=== PATIENT | male | born 1970 | race Caucasian/White ===

== ENCOUNTER 2025-02-22 09:59 | Observation (INO) | payer BC ==
[~2025-02-22] VITALS: Ht 180.3 cm; Wt 105.2 kg
[~2025-02-22 09:59] MED LIST: /AUGM875TA; ATRO0.063; MUCINEX; SM I100T OR; XOPE1.252
[2025-02-22] MEDS: NS (Normal Saline) 0.9% 1,000 ML IV ONE ×2 (10:53→11:50)
[2025-02-22] MEDS: HYDROMORPHONE HCL 0.5 MG/0.5 ML SYRINGE IV PRN (10:53)
[2025-02-22] MEDS ORDERED: ISOVUE-370 76% 100 ML VIAL As Ordered ONE (10:56)
[2025-02-22 11:08] LABS: BASO # 0.0 10^3/uL (0.0-0.2); BASO % 0.2 % (0.0-1.0); EOS # 0.0 10^3/uL (0.0-0.5); EOS % 0.1 % (0.0-3.0); LYMPH # 1.2 10^3/uL (1.5-5.0); LYMPH % 9.3 % (24.0-44.0); MONO # 0.5 10^3/uL (0.0-0.8); MONO % 4.1 % (2.0-8.0); NEUTROPHILS # 10.6 10^3/uL (1.5-8.5); NEUTROPHILS % 86.0 % (36.0-66.0); PLATELET COUNT, AUTOMATED 317 10^3/uL (150-450)
[2025-02-22 11:32] LABS: ALT/SGPT 33.0 U/L (7.0-40); AST/SGOT 20.0 U/L (<34); CALCIUM LEVEL 9.0 MG/DL (8.5-10.1); CARBON DIOXIDE LEVEL 17.0 MMOL/L (20-31); CHLORIDE LEVEL 112.0 MMOL/L (98-107); CREATININE FOR GFR 1.08 MG/DL (0.70-1.30); GLOMERULAR FILTRATION RATE 81.0 (>56); INR 1.01; POTASSIUM SERUM 3.7 MMOL/L (3.5-5.1); SODIUM LEVEL 145.0 MMOL/L (136-145)
[2025-02-22] MEDS ORDERED: IBUP200T46 PO (12:41)
[2025-02-22] MEDS ORDERED: ACET-861 PO (12:41)
[2025-02-22] MEDS ORDERED: HOME MED LIST COMPLETE! XX SCH (12:45)
[2025-02-22] MEDS: ONDANSETRON 4MG/2ML VIAL IV ONE (15:45)
[2025-02-22 16:16] LABS: KETONE, URINE AUTO RFX TRACE mg/dL (NEGATIVE); LEUKOCYTE ESTERASE UR AUTO RFX NEGATIVE (NEGATIVE); NITRITE, URINE AUTO RFX NEGATIVE (NEGATIVE); RBC, URINE AUTO RFX 1 /HPF (0-3); SQUAM EPITHELIAL CELL UR AURFX 0 /HPF (0-6); WBC, URINE AUTO RFX 1 /HPF (0-3)
[2025-02-22 16:42] LABS: CK-MB VALUE MASS 4.9 NG/ML (<3.6); CPK CREATINE PHOSPHOKINASE 155.0 U/L (46-171); MB/CK RELATIVE INDEX 3.16 (< OR =4)
[2025-02-22 16:47] LABS: AMPHETAMINES LEVEL URINE NEGATIVE (NEGATIVE); BARBITURATES URINE NEGATIVE (NEGATIVE); BENZODIAZEPINES URINE NEGATIVE (NEGATIVE); CANNABINOIDS URINE NEGATIVE (NEGATIVE); COCAINE METABOLITE URINE NEGATIVE (NEGATIVE); METHADONE URINE NEGATIVE (NEGATIVE); OPIATES URINE NEGATIVE (NEGATIVE); PHENCYCLIDINE URINE NEGATIVE (NEGATIVE)
[2025-02-22] MEDS: KETOROLAC 30 MG/ML 1 ML VIAL IV ONE (17:16)
[2025-02-22] MEDS: LABETALOL 100 MG/20 ML VIAL IV PRN (17:16)
[2025-02-22] MEDS: LABETALOL 100 MG TAB PO ONE (18:31)
[2025-02-22] MEDS: MORPHINE 2 MG/ML 1 ML VIAL IV ONE (21:20)
[2025-02-22] MEDS: FAMOTIDINE IV BAG 20 MG in IV 1 EA IV ONE (21:20)
[2025-02-22] MEDS ORDERED: MOM 30 ML SUSPENSION UDC PO PRN (23:20)
[2025-02-22] MEDS ORDERED: MAALOX 30 ML SUSP *UDC PO PRN (23:20)
[2025-02-23] MEDS: KETOROLAC 30 MG/ML 1 ML VIAL IV ONE (05:40)
[2025-02-23] MEDS: LABETALOL 100 MG/20 ML VIAL IV STA (05:40)
[2025-02-23] MEDS: ACETAMINOPHEN 325 MG TAB PO PRN (05:42)
[2025-02-23] MEDS: ONDANSETRON 4MG/2ML VIAL IV PRN (06:03)
[2025-02-23 07:40] LABS: PLATELET COUNT, AUTOMATED 310 10^3/uL (150-450)
[2025-02-23 08:11] LABS: CALCIUM LEVEL 8.2 MG/DL (8.5-10.1); CARBON DIOXIDE LEVEL 17 MMOL/L (20-31); CHLORIDE LEVEL 112 MMOL/L (98-107); CHOLESTEROL LEVEL 197 MG/DL (<200); CHOLESTEROL RISK RATIO 7.11 (<5); CREATININE FOR GFR 0.88 MG/DL (0.70-1.30); GLOMERULAR FILTRATION RATE > 90.0 (>56); LDL CHOLESTEROL 142.9 MG/DL (<100); NON-HDL-C 169.3 MG/DL; POTASSIUM SERUM 3.4 MMOL/L (3.5-5.1); SODIUM LEVEL 143 MMOL/L (136-145); TRIGLYCERIDES LEVEL 132 MG/DL (<150)
[2025-02-23 08:19] LABS: ESTIMATED AVERAGE GLUCOSE 154.0 MG/DL (60-110)
[2025-02-23] MEDS ORDERED: amLODIPine 5 MG TAB PO SCH (09:00)
[2025-02-23] MEDS: amLODIPine 10 MG TAB PO SCH (09:03)
[2025-02-23] MEDS: ENOXAPARIN 40 MG/0.4 ML SYRINGE (J1650 PER 10MG) SC SCH (09:03)
[2025-02-23] MEDS: DOCUSATE SODIUM 100 MG CAPSULE PO SCH (09:03)
[2025-02-23] MEDS ORDERED: GLUCOSE 4 GM CHEW PO PRN (13:15)
[2025-02-23] MEDS ORDERED: DEXTROSE 50% 50 ML SYRINGE IV PRN (13:15)
[2025-02-23] MEDS ORDERED: GLUCAGON INJ 1 MG VIAL SC PRN (13:15)
[2025-02-23] MEDS: LABETALOL 100 MG TAB PO PRN (15:12)
[2025-02-23 15:50] LABS: C REACTIVE PROTEIN QUANTITATIV 0.79 MG/DL (<1.0)
[2025-02-23 15:54] LABS: PSA SCREENING 0.63 NG/ML (< 4.00)
[2025-02-23] MEDS: POTASSIUM CHLORIDE 10MEQ SR TABLET PO ONE (16:11)
[2025-02-23] MEDS: **hydrALAZINE HCL** 25 MG TAB PO ONE (16:11)
[2025-02-23 16:18] LABS: VENOUS BASE EXCESS -6.4 (-2.0-2.0); VENOUS HCO3 18.6 MMOL/L (23.0-27.0); VENOUS O2 SATURATION 97.4 % (60.0-80.0); VENOUS PARTIAL PRESSURE CO2 35.9 mmHg (38.0-50.0); VENOUS PARTIAL PRESSURE O2 102.9 mmHg (30.0-50.0); VENOUS PH 7.332 UNITS (7.330-7.430); VENOUS STANDARD HCO3 19.3 MMOL/L; VENOUS TOTAL CO2 19.7 MMOL/L (24.0-28.0)
[2025-02-23 17:08] LABS: ACETONE/KETONE 0.36 MMOL/L (0.02-0.27)
[2025-02-23] MEDS: INSULIN LISPRO (NovoLOG) PER UNIT SC SCH ×2 (17:30→21:00)
[2025-02-23] MEDS: SENNA 8.6 MG TAB PO SCH (21:00)
[2025-02-23] MEDS: hydrALAZINE 20 MG/ML 1 ML VIAL IV ONE (22:37)
[2025-02-23 22:56] VITALS: BP 162/94; TEMP 98.6; O2SAT 96
[2025-02-24 04:00] VITALS: BP 153/92; TEMP 98.4; O2SAT 93
[2025-02-24] MEDS: MIRALAX *UNIT DOSE* 17 GM PACKET PO SCH (08:30)
[2025-02-24] MEDS: ATORVASTATIN 20 MG TAB PO SCH (08:30)
[2025-02-24 08:48] LABS: PLATELET COUNT, AUTOMATED 323 10^3/uL (150-450)
[2025-02-24 09:17] LABS: CALCIUM LEVEL 8.9 MG/DL (8.5-10.1); CARBON DIOXIDE LEVEL 18 MMOL/L (20-31); CHLORIDE LEVEL 115 MMOL/L (98-107); CREATININE FOR GFR 0.87 MG/DL (0.70-1.30); GLOMERULAR FILTRATION RATE > 90.0 (>56); POTASSIUM SERUM 3.8 MMOL/L (3.5-5.1); SODIUM LEVEL 146 MMOL/L (136-145)
[2025-02-24] MEDS: OLMESARTAN MEDOXOMIL 20 MG TAB PO SCH (10:06)
[2025-02-24] MEDS: SODIUM CHLORIDE NASAL 0.65% SPRAY BTL (OCEAN) PRN (10:07)
[2025-02-24] MEDS: OXYMETAZOLINE 0.05% NASAL SPRAY PRN (10:07)
[2025-02-24 12:00] VITALS: BP 170/98; TEMP 99; O2SAT 100
[2025-02-24] MEDS: GABAPENTIN 300 MG CAP PO SCH (13:26)
[2025-02-24] MEDS: TAMSULOSIN 0.4 MG CAP PO SCH (14:54)
[2025-02-24] MEDS: ACETAMINOPHEN 500 MG TAB PO SCH (14:55)
[2025-02-24 20:00] VITALS: BP 129/69; TEMP 98.8; O2SAT 96
[2025-02-25 04:00] VITALS: BP 137/75; TEMP 98.4; O2SAT 98
[2025-02-25 06:23] LABS: PLATELET COUNT, AUTOMATED 319 10^3/uL (150-450)
[2025-02-25 06:47] LABS: CALCIUM LEVEL 8.4 MG/DL (8.5-10.1); CARBON DIOXIDE LEVEL 19 MMOL/L (20-31); CHLORIDE LEVEL 112 MMOL/L (98-107); CREATININE FOR GFR 0.97 MG/DL (0.70-1.30); GLOMERULAR FILTRATION RATE > 90.0 (>56); POTASSIUM SERUM 3.5 MMOL/L (3.5-5.1); SODIUM LEVEL 143 MMOL/L (136-145)
[2025-02-25] MEDS ORDERED: PILL CUTTER 1 EACH XX ONE (08:33)
[2025-02-25] MEDS ORDERED: PROHANCE 279.3MG/ML 15ML VIAL As Ordered ONE (10:54)
[2025-02-25] MEDS ORDERED: PROHANCE 279.3MG/ML 5ML VIAL As Ordered ONE (10:54)
[2025-02-25] MEDS: IBUPROFEN 400 MG TAB PO PRN (11:46)
[2025-02-25 12:00] VITALS: BP 137/71; TEMP 98.8; O2SAT 98
[2025-02-25 20:00] VITALS: BP 150/77; TEMP 99; O2SAT 97
[2025-02-26 04:00] VITALS: BP 144/78; TEMP 98.1; O2SAT 91
[2025-02-26 06:20] LABS: PLATELET COUNT, AUTOMATED 302 10^3/uL (150-450)
[2025-02-26 06:53] LABS: CALCIUM LEVEL 8.7 MG/DL (8.5-10.1); CARBON DIOXIDE LEVEL 18 MMOL/L (20-31); CHLORIDE LEVEL 116 MMOL/L (98-107); CREATININE FOR GFR 0.96 MG/DL (0.70-1.30); GLOMERULAR FILTRATION RATE > 90.0 (>56); POTASSIUM SERUM 3.6 MMOL/L (3.5-5.1); SODIUM LEVEL 147 MMOL/L (136-145)
[2025-02-26 08:51] VITALS: BP 152/80
[2025-02-26 11:50] VITALS: BP 139/82; TEMP 99; O2SAT 96
[2025-02-26 19:58] VITALS: BP 159/86; TEMP 98.6; O2SAT 98
[2025-02-27 04:01] VITALS: BP 153/85; TEMP 98.1; O2SAT 98
[2025-02-27 07:00] LABS: PLATELET COUNT, AUTOMATED 298 10^3/uL (150-450)
[2025-02-27 07:19] LABS: CALCIUM LEVEL 8.7 MG/DL (8.5-10.1); CARBON DIOXIDE LEVEL 18 MMOL/L (20-31); CHLORIDE LEVEL 114 MMOL/L (98-107); CREATININE FOR GFR 0.83 MG/DL (0.70-1.30); GLOMERULAR FILTRATION RATE > 90.0 (>56); POTASSIUM SERUM 3.6 MMOL/L (3.5-5.1); SODIUM LEVEL 145 MMOL/L (136-145)
[2025-02-27 08:35] VITALS: BP 146/85
[2025-02-27] MEDS ORDERED: METH-1164 PO (11:06)
[2025-02-27] MEDS ORDERED: ATOR1TAB21 PO (11:06)
[2025-02-27] MEDS ORDERED: GABA-1172 PO (11:06)
[2025-02-27] MEDS ORDERED: TAMS-18 PO (11:06)
[2025-02-27] MEDS ORDERED: AMLO1TAB25 PO (11:06)
[2025-02-27] MEDS ORDERED: OLME20TA55 PO (11:06)
[2025-02-27] MEDS ORDERED: METF500T13 PO (11:08)
[2025-02-27] MEDS ORDERED: OXYC-517 PO (11:08)
== END 2025-02-27 14:46 | disposition home or self-care (01) ==
LOC: EDBD 09:59 → M ED 09:59 → M ED INP 10:00 → M MSPAV 02-23 23:05
PROVIDERS: ADMIT Student in an Organized Health Care Education/Training Program; ATTEND Internal Medicine
DX: M54.50 Low back pain, unspecified (principal); G89.29 Other chronic pain; R10.31 Right lower quadrant pain; M62.838 Other muscle spasm; E11.9 Type 2 diabetes mellitus without complications; I10 Essential (primary) hypertension; Z91.148 Patient's other noncompliance with medication regimen for other reason; M79.651 Pain in right thigh; M48.061 Spinal stenosis, lumbar region without neurogenic claudication; N42.9 Disorder of prostate, unspecified; E78.00 Pure hypercholesterolemia, unspecified; Z79.899 Other long term (current) drug therapy; Z66 Do not resuscitate
CPT/HCPCS: 36415; 71045; 72148; 74183; 75635; 76775; 76870; 80047; 80048; 80061; 80076; 80307; 81001; 82010; 82550; 82553; 82803; 83036; 83605; 83690; 84145; 84484; 85025; 85027; 85610; 85730; 86140; 86850; 86900; 86901; 93005; 93041; 93306; 93975; 93976; 96361; 96365; 96372; 96375; 96376; 97116; 97161; 97530; 99285; A9576; G0103; J1171; J1308; J1650; J1815; J1885; J1920; J2405; J2765; Q9967

== ENCOUNTER 2025-03-01 15:07 | Observation (INO) | payer BC ==
[~2025-03-01] VITALS: Ht 180.3 cm; Wt 102.4 kg
[~2025-03-01 15:07] MED LIST changes: +ACET-861 PO; +AMLO1TAB25 PO; +ATOR1TAB21 PO; +GABA-1172 PO; +IBUP200T46 PO; +METF500T13 PO; +METH-1164 PO; +OLME20TA55 PO; +OXYC-517 PO; +TAMS-18 PO
[2025-03-01 15:42] LABS: BASO # 0.0 10^3/uL (0.0-0.2); BASO % 0.3 % (0.0-1.0); EOS # 0.2 10^3/uL (0.0-0.5); EOS % 1.3 % (0.0-3.0); LYMPH # 2.4 10^3/uL (1.5-5.0); LYMPH % 18.3 % (24.0-44.0); MONO # 1.4 10^3/uL (0.0-0.8); MONO % 10.5 % (2.0-8.0); NEUTROPHILS # 9.3 10^3/uL (1.5-8.5); NEUTROPHILS % 69.2 % (36.0-66.0); PLATELET COUNT, AUTOMATED 351 10^3/uL (150-450)
[2025-03-01 16:29] LABS: CALCIUM LEVEL 8.8 MG/DL (8.5-10.1); CARBON DIOXIDE LEVEL 18.0 MMOL/L (20-31); CHLORIDE LEVEL 111.0 MMOL/L (98-107); CREATININE FOR GFR 1.07 MG/DL (0.70-1.30); GLOMERULAR FILTRATION RATE 82.0 (>56); POTASSIUM SERUM 3.2 MMOL/L (3.5-5.1); SODIUM LEVEL 143.0 MMOL/L (136-145)
[2025-03-01] MEDS ORDERED: METF500T13 PO (17:34)
[2025-03-01] MEDS ORDERED: HOME MED LIST COMPLETE! XX SCH (17:35)
[2025-03-01] MEDS ORDERED: GLUCAGON INJ 1 MG VIAL SC PRN (17:45)
[2025-03-01] MEDS ORDERED: ONDANSETRON 4MG/2ML VIAL IV PRN (17:45)
[2025-03-01] MEDS ORDERED: DEXTROSE 50% 50 ML SYRINGE IV PRN (17:45)
[2025-03-01] MEDS ORDERED: GLUCOSE 4 GM CHEW PO PRN (17:45)
[2025-03-01] MEDS: POTASSIUM CHLORIDE 10MEQ SR TABLET PO ONE (18:47)
[2025-03-01] MEDS: INSULIN LISPRO (NovoLOG) PER UNIT SC SCH ×2 (19:00→21:50)
[2025-03-01] MEDS: LR 1,000 ML IV SCH (20:16)
[2025-03-01] MEDS: GABAPENTIN 300 MG CAP PO SCH (21:51)
[2025-03-01] MEDS: ACETAMINOPHEN 500 MG TAB PO SCH (21:52)
[2025-03-01 22:50] VITALS: BP 147/72; TEMP 98.7; O2SAT 100
[2025-03-02 03:58] VITALS: BP 132/70; TEMP 97.5; O2SAT 97
[2025-03-02 07:20] LABS: PLATELET COUNT, AUTOMATED 303 10^3/uL (150-450)
[2025-03-02] MEDS ORDERED: INSULIN LISPRO (NovoLOG) PER UNIT SC SCH (07:30)
[2025-03-02 07:32] LABS: CALCIUM LEVEL 9.2 MG/DL (8.5-10.1); CARBON DIOXIDE LEVEL 18.0 MMOL/L (20-31); CHLORIDE LEVEL 113.0 MMOL/L (98-107); CREATININE FOR GFR 1.04 MG/DL (0.70-1.30); GLOMERULAR FILTRATION RATE 84.8 (>56); MAGNESIUM LEVEL 2.1 MG/DL (1.8-2.4); POTASSIUM SERUM 3.7 MMOL/L (3.5-5.1); SODIUM LEVEL 144.0 MMOL/L (136-145)
[2025-03-02] MEDS: ATORVASTATIN 20 MG TAB PO SCH (09:34)
[2025-03-02] MEDS: TAMSULOSIN 0.4 MG CAP PO SCH (09:35)
[2025-03-02] MEDS ORDERED: OLME20TA50 PO (12:01)
[2026-03-01] MEDS ORDERED: INSULIN LISPRO (NovoLOG) PER UNIT SC SCH (17:30)
== END 2025-03-02 14:50 | disposition home or self-care (01) ==
LOC: EDBD 15:07 → M ED 17:28 → M ED INP 17:39 → M MSPAV 22:39
PROVIDERS: ADMIT Student in an Organized Health Care Education/Training Program; ATTEND Student in an Organized Health Care Education/Training Program
DX: R55 Syncope and collapse (principal); I10 Essential (primary) hypertension; E11.9 Type 2 diabetes mellitus without complications; M48.061 Spinal stenosis, lumbar region without neurogenic claudication; G89.29 Other chronic pain; N40.0 Benign prostatic hyperplasia without lower urinary tract symptoms; E87.6 Hypokalemia; Z79.84 Long term (current) use of oral hypoglycemic drugs; Z79.899 Other long term (current) drug therapy
CPT/HCPCS: 36415; 70450; 80048; 83735; 84484; 85025; 85027; 93005; 93041; 94760; 96360; 96361; 99285; J1815

== ENCOUNTER → 2025-03-02 | Outpatient (CLI) | payer BC ==
[~2025-03-02] MED LIST changes: +OLME20TA50 PO
== END ==
LOC: M EKG 15:04
PROVIDERS: ATTEND Student in an Organized Health Care Education/Training Program
DX: R55 Syncope and collapse (principal); Z53.9 Procedure and treatment not carried out, unspecified reason